=== PATIENT | female | born 1955 | race Caucasian/White ===

== ENCOUNTER 2022-01-19 16:43 | Outpatient (CLI) | payer MEDICARE, OTHER ==
--- NOTE | 2022-01-20 10:22 | XRAY Report ---
PROCEDURE: Thoracic Spine 2 View INDICATIONS: UPPER BACK PX TECHNIQUE: 2 views of the thoracic spine were acquired. COMPARISON: Cervical spine plain films from same date FINDINGS: Bones: No fractures or dislocations. No suspicious bony lesions. 12 pairs of ribs are noted, and a ppear intact where visualized. Soft tissues: No paravertebral stripe thickening. IMPRESSION: No evidence acute bony abnormality of the thoracic spine. If clinical suspicion and/or symptoms persist, further assessment with thoracic spine MRI may be help ful for further assessment. Reviewed by: Jaylan Bah MD on 01/20/2022 10:21 AM PDT Approved by: Jaylan Bah MD on 01/20/2022 10:21 AM PDT Station ID: [id number]
--- NOTE | 2022-01-20 10:22 | XRAY Report ---
PROCEDURE: Cervical Spine 2 View INDICATIONS: NECK PX TECHNIQUE: 3 view(s) of the cervical spine were acquired. COMPARISON: None FINDINGS: Bones: No fractures or dislocations to the T1 level. The lateral masses of C1 appear intact on the odontoid view. No suspicious bony lesions. Moderate to severe cervical spondylitic change. Disc hei ght loss, anterior osteophytes, and uncovertebral joint hypertrophy at C5-C6 and C6-C7. Multilevel ce rvical facet arthropathy. Soft tissues: No prevertebral soft tissue swelling. IMPRESSION: Moderate to severe cervical spondylitic change. Reviewed by: Jaylan Bah MD on 01/20/2022 10:20 AM PDT Approved by: Jaylan Bah MD on 01/20/2022 10:20 AM PDT Station ID: [id number]
== END 2022-01-19 16:44 | disposition home or self-care (01) ==
LOC: DI.N 16:43
PROVIDERS: ATTEND Chiropractor
DX: M54.6 Pain in thoracic spine (principal); M47.812 Spondylosis without myelopathy or radiculopathy, cervical region; M50.322 Other cervical disc degeneration at C5-C6 level